=== PATIENT | female | born 1940 | race Caucasian/White ===

== ENCOUNTER 2017-05-24 21:54 | Emergency (ER) | payer MEDICAID ==
[~2017-05-24] VITALS: Ht 157.5 cm; Wt 70.3 kg
[2017-05-24 22:13] VITALS: Ht 157.5 cm; Wt 70.3 kg
[2017-05-25 04:52] LABS: microscopic required? YES; urine erythrocyte NEGATIVE (NEGATIVE)
[2017-05-25 04:54] LABS: CALCIUM 8.1 mg/dL (8.5-10.1); CARBON DIOXIDE 21.6 mmol/L (21-32); CHLORIDE SERUM 103 mmol/L (98-107); GLUCOSE SERUM 98 mg/dL (74-106); POTASSIUM SERUM 3.7 mmol/L (3.5-5.1); SODIUM SERUM 136 mmol/L (136-145)
[2017-05-25 04:56] LABS: BASOPHIL % 0.6 % (0-2); PLATELET COUNT 251 x10^3mcL (130-400)
[2017-05-25 04:58] LABS: ALBUMIN 3.5 g/dL (3.4-5.0); ALKALINE PHOSPHATASE 102 U/L (46-116); ALT/SGPT 41 U/L (14-59); AST/SGOT 36 U/L (15-37); BILIRUBIN TOTAL 0.19 mg/dL (0.20-1.00); TOTAL PROTEIN, SERUM 6.9 g/dL (6.4-8.2)
[2017-05-25 05:04] LABS: RED CELL DISTRIBUTION WIDTH 15.2 % (11.5-14.5)
[2017-05-25 06:41] VITALS: BP 119/72
== END 2017-05-25 07:20 | disposition home or self-care (01) ==
LOC: ED 21:54
PROVIDERS: Emergency Medicine
DX: J20.9 Acute bronchitis, unspecified (principal); I10 Essential (primary) hypertension; Z88.0 Allergy status to penicillin
CPT/HCPCS: 87804; J2270; Q0092

== ENCOUNTER 2018-08-30 10:50 | Inpatient (IN) | payer MEDICAID ==
[~2018-08-30] VITALS: Ht 149.9 cm; Wt 59.0 kg
[2018-08-30 12:15] LABS: BASOPHIL % 0.2 % (0-2); PLATELET COUNT 286 x10^3mcL (130-400)
[2018-08-30 12:17] LABS: RED CELL DISTRIBUTION WIDTH 14.8 % (11.5-14.5)
[2018-08-30 12:18] LABS: microscopic required? YES; urine erythrocyte NEGATIVE (NEGATIVE)
[2018-08-30 12:28] LABS: CALCIUM 7.9 mg/dL (8.5-10.1); CHLORIDE SERUM 100 mmol/L (98-107); CREATININE SERUM 1.6 mg/dL (0.6-1.0); GLUCOSE SERUM 109 mg/dL (74-106); POTASSIUM SERUM 3.1 mmol/L (3.5-5.1); SODIUM SERUM 133 mmol/L (136-145)
[2018-08-30 12:39] LABS: ALBUMIN 3.9 g/dL (3.4-5.0); ALKALINE PHOSPHATASE 103 U/L (46-116); ALT/SGPT 32 U/L (14-59); AST/SGOT 26 U/L (15-37); BILIRUBIN TOTAL 0.19 mg/dL (0.20-1.00); C REACTIVE PROTEIN 2.3 mg/dL (<=0.9); TOTAL PROTEIN, SERUM 7.8 g/dL (6.4-8.2)
[2018-08-30 12:42] LABS: CK-MB 0.9 ng/mL (0-3.6)
[2018-08-30 12:43] LABS: FREE T4 1.06 ng/dL (0.76-1.46); FREE THYROXINE INDEX 3.3 ug/dL (1.4-4.5); T4(THYROXINE) 10.3 ug/dL (4.7-13.3)
[2018-08-30 12:58] LABS: T3 TOTAL 0.71 ng/mL
[2018-08-30 12:59] LABS: ERYTHROCYTE SED RATE 25 mm/hr (0-30)
[2018-08-30] MEDS ORDERED: AMLODIPINE BES2.5 M1 PO (13:32)
[2018-08-30] MEDS ORDERED: LEVOTHYROXIN0.075 M2 PO ×2 (13:33→13:34)
[2018-08-30] MEDS ORDERED: ZESTRIL20 MG PO (13:33)
[2018-08-30 14:52] LABS: MAGNESIUM 2.6 mg/dL (1.8-2.4)
[2018-08-30 15:06] LABS: PHOSPHOROUS 5.2 mg/dL (2.5-4.9)
[2018-08-30 15:12] LABS: CHOLESTEROL/HDL RATIO 2.2
[2018-08-30 15:32] VITALS: BP 136/56
[2018-08-30 15:36] VITALS: Ht 149.9 cm; Wt 59.0 kg
[2018-08-30 20:57] VITALS: BP 127/48
[2018-08-31 05:02] VITALS: BP 129/51
[2018-08-31 06:42] LABS: CALCIUM 7.2 mg/dL (8.5-10.1); CARBON DIOXIDE 16.5 mmol/L (21-32); CHLORIDE SERUM 104 mmol/L (98-107); CREATININE SERUM 1.2 mg/dL (0.6-1.0); GLUCOSE SERUM 156 mg/dL (74-106); POTASSIUM SERUM 3.8 mmol/L (3.5-5.1); SODIUM SERUM 135 mmol/L (136-145)
[2018-08-31 06:55] LABS: MAGNESIUM 2.2 mg/dL (1.8-2.4); PHOSPHOROUS 2.7 mg/dL (2.5-4.9)
[2018-08-31 07:24] LABS: BASOPHIL % 0.1 % (0-2); PLATELET COUNT 252 x10^3mcL (130-400)
[2018-08-31 09:19] VITALS: BP 170/63
[2018-08-31] MEDS ORDERED: ZOF4 PO (11:47)
[2018-08-31 12:36] VITALS: BP 170/66
[2018-08-31 17:43] VITALS: BP 163/70
[2018-08-31 20:17] VITALS: BP 163/64
[2018-08-31 23:05] VITALS: BP 173/69
[2018-09-01] VITALS (7 sets, daily range): BP systolic 123–164; BP diastolic 49–67
[2018-09-01 10:28] LABS: PLATELET COUNT 267 x10^3mcL (130-400)
[2018-09-01 10:33] LABS: RED CELL DISTRIBUTION WIDTH 15.2 % (11.5-14.5)
[2018-09-01 11:27] LABS: CALCIUM 6.9 mg/dL (8.5-10.1); CARBON DIOXIDE 18.6 mmol/L (21-32); CHLORIDE SERUM 100 mmol/L (98-107); GLUCOSE SERUM 185 mg/dL (74-106); POTASSIUM SERUM 4.6 mmol/L (3.5-5.1); SODIUM SERUM 129 mmol/L (136-145)
[2018-09-01 12:02] LABS: BAND NEUTROPHIL 8 % (0-10); MONOCYTE 10 % (0-7); SEGMENTED NEUTROPHILS 73 % (37-75); burr cell (echinocyte) 2+; rbc morphology (normal/abnorm) ABNORMAL (NORMAL)
[2018-09-01 12:03] LABS: PLATELET MORPHOLOGY PLATELETS NORMAL
[2018-09-02] VITALS (7 sets, daily range): BP systolic 112–183; BP diastolic 59–81
[2018-09-02 07:20] LABS: CALCIUM 6.8 mg/dL (8.5-10.1); CARBON DIOXIDE 15.7 mmol/L (21-32); CHLORIDE SERUM 96 mmol/L (98-107); GLUCOSE SERUM 155 mg/dL (74-106); POTASSIUM SERUM 4.5 mmol/L (3.5-5.1)
[2018-09-02 07:25] LABS: PLATELET COUNT 288 x10^3mcL (130-400)
[2018-09-02 07:30] LABS: SODIUM SERUM 124 mmol/L (136-145)
[2018-09-02 07:31] LABS: RED CELL DISTRIBUTION WIDTH 15.3 % (11.5-14.5)
[2018-09-02 11:38] LABS: ALBUMIN 2.2 g/dL (3.4-5.0); BILIRUBIN DIRECT 0.08 mg/dL (0.0-0.2); BILIRUBIN TOTAL 0.14 mg/dL (0.20-1.00); TOTAL PROTEIN, SERUM 4.9 g/dL (6.4-8.2)
[2018-09-02 11:54] LABS: BAND NEUTROPHIL 9 % (0-10); BASOPHIL 0 % (0-2); MONOCYTE 10 % (0-7); PLATELET MORPHOLOGY PLATELETS NORMAL; SEGMENTED NEUTROPHILS 72 % (37-75); burr cell (echinocyte) 1+; rbc morphology (normal/abnorm) ABNORMAL (NORMAL)
[2018-09-03 05:43] VITALS: BP 122/84
[2018-09-03 06:27] LABS: PLATELET COUNT 291 x10^3mcL (130-400)
[2018-09-03 06:45] LABS: CALCIUM 7.1 mg/dL (8.5-10.1); CARBON DIOXIDE 19.6 mmol/L (21-32); CHLORIDE SERUM 93 mmol/L (98-107); GLUCOSE SERUM 120 mg/dL (74-106); POTASSIUM SERUM 4.1 mmol/L (3.5-5.1)
[2018-09-03 06:56] LABS: SODIUM SERUM 122 mmol/L (136-145)
[2018-09-03 09:00] LABS: RED CELL DISTRIBUTION WIDTH 15.3 % (11.5-14.5)
[2018-09-03 09:41] VITALS: BP 134/61
[2018-09-03 12:59] LABS: BAND NEUTROPHIL 1 % (0-10); BASOPHIL 0 % (0-2); MONOCYTE 4 % (0-7); SEGMENTED NEUTROPHILS 85 % (37-75)
[2018-09-03 13:00] LABS: PLATELET MORPHOLOGY PLATELETS NORMAL; rbc morphology (normal/abnorm) ABNORMAL (NORMAL)
[2018-09-03 13:06] VITALS: BP 126/55
[2018-09-03 16:37] VITALS: BP 135/65
[2018-09-03 20:54] VITALS: BP 136/63
[2018-09-04 06:21] VITALS: BP 154/72
[2018-09-04 06:39] LABS: CALCIUM 7.1 mg/dL (8.5-10.1); CARBON DIOXIDE 18.2 mmol/L (21-32); CHLORIDE SERUM 93 mmol/L (98-107); CREATININE SERUM 0.9 mg/dL (0.6-1.0); GLUCOSE SERUM 121 mg/dL (74-106); POTASSIUM SERUM 3.7 mmol/L (3.5-5.1)
[2018-09-04 06:41] LABS: PLATELET COUNT 346 x10^3mcL (130-400)
[2018-09-04 07:15] LABS: SODIUM SERUM 123 mmol/L (136-145)
[2018-09-04 08:07] VITALS: BP 118/71
[2018-09-04 09:09] LABS: ATYPICAL LYMPH 1 %; BAND NEUTROPHIL 0 % (0-10); BASOPHIL 0 % (0-2); MONOCYTE 4 % (0-7); SEGMENTED NEUTROPHILS 73 % (37-75)
[2018-09-04 09:10] LABS: rbc morphology (normal/abnorm) ABNORMAL (NORMAL)
[2018-09-04 09:11] LABS: PLATELET MORPHOLOGY PLATELETS INCREASED
[2018-09-04 12:09] VITALS: BP 142/64
[2018-09-04 15:28] VITALS: BP 129/41
[2018-09-04 19:34] VITALS: BP 118/62
[2018-09-04 23:58] VITALS: BP 148/59
[2018-09-05 05:27] VITALS: BP 139/57
[2018-09-05 06:49] LABS: PLATELET COUNT 377 x10^3mcL (130-400)
[2018-09-05 06:51] LABS: RED CELL DISTRIBUTION WIDTH 15.3 % (11.5-14.5)
[2018-09-05 07:09] LABS: CALCIUM 7.1 mg/dL (8.5-10.1); CARBON DIOXIDE 20.3 mmol/L (21-32); CHLORIDE SERUM 94 mmol/L (98-107); CREATININE SERUM 0.8 mg/dL (0.6-1.0); GLUCOSE SERUM 107 mg/dL (74-106); MAGNESIUM 1.8 mg/dL (1.8-2.4); POTASSIUM SERUM 3.4 mmol/L (3.5-5.1); SODIUM SERUM 126 mmol/L (136-145)
[2018-09-05 08:20] VITALS: BP 129/59
[2018-09-05 08:49] VITALS: BP 137/67
[2018-09-05 12:24] LABS: BAND NEUTROPHIL 8 % (0-10); BASOPHIL 0 % (0-2); METAMYELOCTE 2 % (0-2); MONOCYTE 12 % (0-7); SEGMENTED NEUTROPHILS 70 % (37-75); rbc morphology (normal/abnorm) NORMAL (NORMAL)
[2018-09-05 13:27] VITALS: BP 121/55
[2018-09-05 16:25] VITALS: BP 118/73
[2018-09-05 20:00] VITALS: BP 124/59
[2018-09-06 06:39] VITALS: BP 105/72
[2018-09-06 06:41] LABS: CALCIUM 7.2 mg/dL (8.5-10.1); CARBON DIOXIDE 20.2 mmol/L (21-32); CHLORIDE SERUM 97 mmol/L (98-107); CREATININE SERUM 1.1 mg/dL (0.6-1.0); GLUCOSE SERUM 101 mg/dL (74-106); POTASSIUM SERUM 3.7 mmol/L (3.5-5.1); SODIUM SERUM 128 mmol/L (136-145)
[2018-09-06 06:47] LABS: PLATELET COUNT 360 x10^3mcL (130-400)
[2018-09-06 06:57] LABS: RED CELL DISTRIBUTION WIDTH 15.4 % (11.5-14.5)
[2018-09-06 07:41] VITALS: BP 134/66
[2018-09-06 13:24] VITALS: BP 140/55
[2018-09-06 13:58] LABS: BAND NEUTROPHIL 0 % (0-10); BASOPHIL 0 % (0-2); MONOCYTE 14 % (0-7); PLATELET MORPHOLOGY PLATELETS INCREASED; SEGMENTED NEUTROPHILS 78 % (37-75)
[2018-09-06 13:59] LABS: rbc morphology (normal/abnorm) ABNORMAL (NORMAL)
[2018-09-06 16:01] VITALS: BP 133/52
[2018-09-06 22:17] VITALS: BP 129/55
[2018-09-07 06:18] VITALS: BP 106/64
[2018-09-07 06:47] LABS: CALCIUM 7.5 mg/dL (8.5-10.1); CARBON DIOXIDE 21.3 mmol/L (21-32); CHLORIDE SERUM 97 mmol/L (98-107); CREATININE SERUM 1.7 mg/dL (0.6-1.0); GLUCOSE SERUM 97 mg/dL (74-106); MAGNESIUM 1.8 mg/dL (1.8-2.4); POTASSIUM SERUM 4.8 mmol/L (3.5-5.1); SODIUM SERUM 128 mmol/L (136-145)
[2018-09-07 08:27] LABS: PLATELET COUNT 505 x10^3mcL (130-400)
[2018-09-07 09:00] VITALS: BP 140/61
[2018-09-07 11:50] LABS: BAND NEUTROPHIL 5 % (0-10); BASOPHIL 0 % (0-2); METAMYELOCTE 2 % (0-2); MONOCYTE 15 % (0-7); MYELOCYTE 3 % (0-2); PLATELET MORPHOLOGY PLATELETS INCREASED; SEGMENTED NEUTROPHILS 62 % (37-75)
[2018-09-07 11:51] LABS: rbc morphology (normal/abnorm) ABNORMAL (NORMAL)
[2018-09-07 14:00] VITALS: BP 132/73
[2018-09-07 17:36] VITALS: BP 134/45
[2018-09-08 05:31] VITALS: BP 127/59
[2018-09-08 06:33] LABS: RED CELL DISTRIBUTION WIDTH 15.9 % (11.5-14.5)
[2018-09-08 06:39] LABS: CALCIUM 7.4 mg/dL (8.5-10.1); CARBON DIOXIDE 21.1 mmol/L (21-32); CHLORIDE SERUM 101 mmol/L (98-107); CREATININE SERUM 1.8 mg/dL (0.6-1.0); GLUCOSE SERUM 98 mg/dL (74-106); POTASSIUM SERUM 4.5 mmol/L (3.5-5.1); SODIUM SERUM 133 mmol/L (136-145)
[2018-09-08 07:08] LABS: PLATELET COUNT 566 x10^3mcL (130-400)
[2018-09-08 09:16] VITALS: BP 100/52
[2018-09-08 09:31] LABS: BAND NEUTROPHIL 1 % (0-10); BASOPHIL 0 % (0-2); MONOCYTE 3 % (0-7); SEGMENTED NEUTROPHILS 90 % (37-75)
[2018-09-08 09:32] LABS: rbc morphology (normal/abnorm) ABNORMAL (NORMAL)
[2018-09-08 09:33] LABS: PLATELET MORPHOLOGY PLATELETS INCREASED
[2018-09-08 10:16] VITALS: BP 100/52
[2018-09-08 12:20] VITALS: BP 144/58
[2018-09-08 17:30] VITALS: BP 136/62
[2018-09-08 21:16] VITALS: BP 144/73
[2018-09-09 05:12] VITALS: BP 135/52
[2018-09-09 06:42] LABS: BASOPHIL % 0.4 % (0-2)
[2018-09-09 07:00] LABS: CALCIUM 7.7 mg/dL (8.5-10.1); CARBON DIOXIDE 21.8 mmol/L (21-32); CHLORIDE SERUM 104 mmol/L (98-107); CREATININE SERUM 1.9 mg/dL (0.6-1.0); GLUCOSE SERUM 93 mg/dL (74-106); POTASSIUM SERUM 4.7 mmol/L (3.5-5.1); SODIUM SERUM 137 mmol/L (136-145)
[2018-09-09 08:19] LABS: PLATELET COUNT 607 x10^3mcL (130-400); RED CELL DISTRIBUTION WIDTH 16.1 % (11.5-14.5)
[2018-09-09 08:37] VITALS: BP 147/66
[2018-09-09 13:31] VITALS: BP 152/63
[2018-09-09 17:29] VITALS: BP 154/58
[2018-09-09 21:40] VITALS: BP 147/53
[2018-09-10 05:49] VITALS: BP 153/67
[2018-09-10 07:41] LABS: CALCIUM 7.8 mg/dL (8.5-10.1); CARBON DIOXIDE 24.3 mmol/L (21-32); CHLORIDE SERUM 103 mmol/L (98-107); CREATININE SERUM 1.8 mg/dL (0.6-1.0); GLUCOSE SERUM 91 mg/dL (74-106); POTASSIUM SERUM 4.7 mmol/L (3.5-5.1); SODIUM SERUM 136 mmol/L (136-145)
[2018-09-10 08:03] LABS: BASOPHIL % 0.4 % (0-2)
[2018-09-10 08:27] LABS: RED CELL DISTRIBUTION WIDTH 15.7 % (11.5-14.5)
[2018-09-10 08:28] LABS: PLATELET COUNT 646 x10^3mcL (130-400)
[2018-09-10 08:30] VITALS: BP 100/56
[2018-09-10 12:00] VITALS: BP 153/67
[2018-09-10 17:00] VITALS: BP 129/61
[2018-09-11 05:20] VITALS: BP 133/55
[2018-09-11 06:16] LABS: BASOPHIL % 0.3 % (0-2)
[2018-09-11 06:41] LABS: CHLORIDE SERUM 103 mmol/L (98-107); CREATININE SERUM 1.2 mg/dL (0.6-1.0); GLUCOSE SERUM 92 mg/dL (74-106); POTASSIUM SERUM 4.5 mmol/L (3.5-5.1); SODIUM SERUM 138 mmol/L (136-145)
[2018-09-11 08:03] LABS: PLATELET COUNT 649 x10^3mcL (130-400); RED CELL DISTRIBUTION WIDTH 15.8 % (11.5-14.5)
[2018-09-11] MEDS ORDERED: FERROUS SULFAT325 M2 PO (09:52)
[2018-09-11] MEDS ORDERED: FLO4 PO (09:52)
[2018-09-11] MEDS ORDERED: TENORMIN50 MG PO (09:52)
[2018-09-11] MEDS ORDERED: COLACE100 MG PO (09:52)
[2018-09-11] MEDS ORDERED: NOR5 PO (09:52)
[2018-09-11] MEDS ORDERED: LEVO-T50 MCG PO (09:52)
[2018-09-11] MEDS ORDERED: PROTONIX40 MG PO (09:52)
[2018-09-11] MEDS ORDERED: ROC1I IM (09:56)
[2018-09-11 13:03] VITALS: BP 126/52
== END 2018-09-11 16:05 | DRG 249 ==
LOC: ED 10:50 → DU 14:32 → MU 14:32 → DU 19:23 → IC 09-04 09:21 → DU 09-04 23:42
PROVIDERS: Internal Medicine; Internal Medicine Gastroenterology; Specialist; ADMIT Family Medicine
PROC: 0DB58ZX Excision of Esophagus, Via Natural or Artificial Opening Endoscopic, Diagnostic (ICD-10-PCS; 2018-09-09)
PROC: 0DB98ZX Excision of Duodenum, Via Natural or Artificial Opening Endoscopic, Diagnostic (ICD-10-PCS; principal; 2018-09-09 09:30)
PROC: 0DB78ZX Excision of Stomach, Pylorus, Via Natural or Artificial Opening Endoscopic, Diagnostic (ICD-10-PCS; 2018-09-09 09:30)
DX: A08.4 Viral intestinal infection, unspecified (principal); J96.01 Acute respiratory failure with hypoxia; J69.0 Pneumonitis due to inhalation of food and vomit; N17.0 Acute kidney failure with tubular necrosis; I50.43 Acute on chronic combined systolic (congestive) and diastolic (congestive) heart failure; D68.69 Other thrombophilia; E83.39 Other disorders of phosphorus metabolism; E11.9 Type 2 diabetes mellitus without complications; K29.80 Duodenitis without bleeding; K25.9 Gastric ulcer, unspecified as acute or chronic, without hemorrhage or perforation; K22.10 Ulcer of esophagus without bleeding; E83.41 Hypermagnesemia; E86.0 Dehydration; E87.1 Hypo-osmolality and hyponatremia; E87.6 Hypokalemia; E03.9 Hypothyroidism, unspecified; Z68.26 Body mass index [BMI] 26.0-26.9, adult; Z87.891 Personal history of nicotine dependence; Z79.84 Long term (current) use of oral hypoglycemic drugs
CPT/HCPCS: 36600; 43235; 82962; 84439; 87046; 87046-59; 87804; 97110-GP; 97116-GP; 97530-GP; C9113; J0360; J0696; J1200; J1610; J1644; J1885; J1940; J1956; J2250; J2310; J2405; J2550; J2765; J3010; J3480; J3490; J7030; J7040; J7620; J7626; Q0092; Q9966; Q9967